=== PATIENT | female | born 1945 | race Caucasian/White ===

== ENCOUNTER → 2018-09-06 | Outpatient (CLI) | payer OTHER ==
[~2018-09-06] VITALS: Ht 167.6 cm; Wt 131.5 kg
[~2018-09-06] MED LIST: LEVALBUTER1.25 MG/0. INH; LEVALBUTEROL TA15 GM INH; LIPITOR10 MG PO; METOPROLOL TART25 MG PO; PROTONIX40 M1 PO; PROZAC20 MG PO; SINGULAIR 10 MG10 M1 PO; TRELEGY ELLIPT1 EACH INH; VALSARTAN-HCTZ1 EACH PO; VENTOLIN HFA 1818 GM INH; XARELTO20 MG PO
--- NOTE | 2018-09-06 16:39 | P ---
[facility] [place] [address] PROCEDURE REPORT Name: CHRISTIANO MEDELLIN Room #: REG [facility]#: [id number] Admission: 09/06/18 ������������������ Attend Phys: Margarito Carlton MD Discharge: ������������������ Date of : 45 Report #: [id number] THIS REPORT FOR: //name// CC: Dago Carlton OUTPATIENT COLONOSCOPY BRIEF HISTORY: The patient is a 73-year-old woman here for average risk screening colonoscopy. PREOPERATIVE DIAGNOSIS: Average risk screening colonoscopy. POSTOPERATIVE DIAGNOSES: 1. Diminutive rectal polyp. 2. Internal hemorrhoids. MEDICATIONS: Deep sedation with propofol per anesthesia. SPECIMEN: Rectal polyp. ESTIMATED BLOOD LOSS: 3 mL. PROCEDURE: Colonoscopy to cecum and terminal ileum with biopsy. FINDINGS: Prior to propofol sedation, procedure of colonoscopy was discussed with the patient as well as potential risks, benefits and complications. She indicates she understands and desires to proceed. DESCRIPTION OF PROCEDURE: With the patient in left lateral decubitus position, digital examination was completed, which revealed no abnormalities. Subsequently, the Olympus video colonoscope was introduced in the rectum, advanced under direct vision to the cecum. Done with minimal difficulty. The cecum was identified by the ileocecal valve and the appendiceal orifice. I was able to visualize the distal segment of the terminal ileum, which was inspected and noted to be unremarkable. At that point, the scope was withdrawn and careful circumferential views obtained including retroflexing the scope in the ascending colon. Upon slow withdrawal of the scope, the prep for the most part was good; however, in several areas including the cecum, there was a fairly large amount of seed material which could not be aspirated through the scope. We cleaned up as much as possible, but not all this material could be removed. With these limitations, a small lesion could have been overlooked. Otherwise, the colon had a good prep with normal mucosa and normal light reflex. Other than a few scattered areas with residual seed material, no abnormalities were noted throughout the colon until the sigmoid was reached at which point she was noted to have moderate sigmoid diverticular disease without endoscopic evidence [address] [address] PROCEDURE REPORT Name: LACIECHRISTIANO Clarisa Room #: REG [facility].#: [id number] Admission: 09/06/18 ������������������ Attend Phys: Margarito Carlton MD Discharge: ������������������ Date of : 45 Report #: [id number] of diverticulitis. The scope was withdrawn in the rectum and no abnormalities were seen until upon retroflexion. A diminutive polyp was seen, which had an adenomatous appearance. It was removed with biopsy forceps. In addition, internal hemorrhoids were identified. The scope was withdrawn. The patient tolerated the procedure well. CONDITION OF THE PATIENT UPON DISCHARGE: Following the procedure, the patient was drowsy and arousable. She will be discharged home when fully ambulatory. INSTRUCTIONS TO THE PATIENT AND FAMILY AT THE TIME OF DISCHARGE: We will follow up on the path and make further recommendations. However, due to the fact, there were some limitations of the prep with material that could not be completely cleared away. I suggest return in 3 years for colonoscopy. I suggest high fiber diet for diverticular disease. She will return to the care of Dr. Dago Sotomayor and return to see me as needed. ��������������������������������������������� <ELECTRONICALLY SIGNED> ���������������������������������������� By: Margarito Carlton MD ��������������������������������������������� 09/06/18 [id number] Margarito Carlton MD /nt
== END | disposition home or self-care (01) ==
LOC: GI 08:28
DX: Z12.11 Encounter for screening for malignant neoplasm of colon (principal); K62.1 Rectal polyp; K57.30 Diverticulosis of large intestine without perforation or abscess without bleeding; K64.8 Other hemorrhoids; K21.9 Gastro-esophageal reflux disease without esophagitis; I10 Essential (primary) hypertension; E78.5 Hyperlipidemia, unspecified; F32.9 Major depressive disorder, single episode, unspecified; J45.909 Unspecified asthma, uncomplicated; Z98.890 Other specified postprocedural states; Z79.899 Other long term (current) drug therapy; Z88.6 Allergy status to analgesic agent; Z87.891 Personal history of nicotine dependence; Z85.118 Personal history of other malignant neoplasm of bronchus and lung; Z86.711 Personal history of pulmonary embolism; Z79.01 Long term (current) use of anticoagulants
CPT/HCPCS: 62110; 62900